=== PATIENT | female | born 1945 | race Caucasian/White ===

== ENCOUNTER → 2020-10-21 | Outpatient (CLI) | payer OTHER ==
[~2020-10-21] MED LIST: ALLE24TA7 PO; LISI-542 PO; OXYC1TAB23 PO; PROZ10CA7 PO; PROZ20CA11 PO; VYTO10TA22 PO
[2020-10-21 13:34] LABS: CALCIUM LEVEL 11.2 MG/DL (8.8-10.2); PHOSPHORUS LEVEL 2.6 MG/DL (2.5-4.9)
== END ==
LOC: M WUC 10:26
PROVIDERS: ATTEND Internal Medicine Endocrinology, Diabetes & Metabolism
DX: E83.52 Hypercalcemia (principal)

== ENCOUNTER → 2021-01-25 | Outpatient (CLI) | payer OTHER ==
[~2021-01-25] MED LIST changes: -LISI-542 PO; +LISI-898 PO
[2021-01-25 12:57] LABS: CALCIUM LEVEL 9.3 MG/DL (8.8-10.2); PHOSPHORUS LEVEL 2.5 MG/DL (2.5-4.9)
== END ==
LOC: M WUC 09:52
PROVIDERS: ATTEND Internal Medicine Endocrinology, Diabetes & Metabolism
DX: E83.52 Hypercalcemia (principal)

== ENCOUNTER → 2021-07-21 | Outpatient (CLI) | payer OTHER ==
[2021-07-21 13:38] LABS: PHOSPHORUS LEVEL 3.1 MG/DL (2.5-4.9)
== END ==
LOC: M WUC 09:51
PROVIDERS: ATTEND Internal Medicine Endocrinology, Diabetes & Metabolism
DX: E83.52 Hypercalcemia (principal)